=== PATIENT | female | born 1985 | race Caucasian/White ===

== ENCOUNTER 2017-02-24 11:26 | Inpatient (IN) | payer OTHER ==
[2017-02-24] MEDS ORDERED: OXYTOCIN IN NS 500 ML IV ONE (11:35)
[2017-02-24] MEDS ORDERED: IV START KIT ONE (12:04)
[2017-02-24] MEDS ORDERED: MINERAL OIL 25 ML BOT ONE (12:05)
[2017-02-24] MEDS ORDERED: LIDOCAINE Viscous 2% 15 ML UDCUP ONE (12:05)
[2017-02-24] MEDS ORDERED: LACTATED RINGERS 1,000 ML ONE (12:05)
[2017-02-24] MEDS ORDERED: LIDOCAINE 1% (PRES FREE) 30 ML VIAL ONE (12:05)
[2017-02-24] MEDS ORDERED: OXYTOCIN 10 UNITS/ML VIAL ONE (12:05)
[2017-02-24] MEDS ORDERED: PUMP TUBING ONE (12:05)
[2017-02-24] MEDS: MISOPROSTOL 25 MCG TABLET SL SCH ×2 (12:15→16:36)
[2017-02-24 12:43] LABS: HEMATOCRIT 32.6 % (37.0-47.0); MEAN CELL VOLUME 94.8 fl (81.0-99.0); MEAN CORPUSCULAR HGB CONC 33.7 g/dl (33.0-37.0); RED CELL DISTRIBUTION WIDTH 12.4 % (11.5-14.5)
[2017-02-24 12:49] VITALS: BMI 30.8
--- NOTE | 2017-02-24 15:13 | PCMAN ---
OB Admission Note - History : 2 Term: 1 : 0 Abortions (S&E): 0 Livin Gestational Age (weeks): 40 Days (#/7): 6 Admit Cervical Dilation:: 1.5 Admit Cervical Effacement (%):: 40 Admit Station:: -2 Admit Presentaton:: vtx Membrane Status: Ruptured Rupture (Date): 02/24/17 Rupture (Time): 03:00 Contractions: Yes Contraction Frequency:: 1.5-3 Heart Rate:: 135 Status:: reassuring EFW:: 7.5 Summary of Course:: Unremarkable course - Labs Blood Type: A (+) positive Rubella Status: Immune GBS Status: Negative Abnormal Labs: None - Review of Systems 12 point ROS normal except for mild contractions and loss of amniotic fluid since 3 am this morning. - Physical Exam Psych/Mental Status: Mood/Affect Appropriate Lungs: Clear to Auscultation Bilaterally Cardiovascular: Regular Rate and Rhythm Abdomen: Other (gravid, nontender) - Problems (1) Term Status: Acute Code: Z34.80Assessment/Plan: 31 yo @ 40 6/7wks arrives with SROM since 3 am. She states that fluid has become a little darker and so she decided to come in. She only has mild contractions and not very regularly. FHTs are reassuring and she is GBS negative. -will admit -given unfavorable cervix, will place on buccal Miso now in setting SROM and plan to recheck in 4hrs and if remains unfavorable, might consider placing graves bulb at that time (2) SROM (spontaneous rupture of membranes) Status: Acute Code: [id number]/Plan: Clear fluid here on RN shaan.
[2017-02-24] MEDS: LACTATED RINGERS 1,000 ML IV PRN ×2 (20:35→21:53)
[2017-02-24] MEDS ORDERED: EPIDURAL PUMP SET ONE (21:02)
[2017-02-24] MEDS ORDERED: FENTANYL/ROPIVACAINE EPIDURAL 250 ML EP ONE (21:03)
[2017-02-24] MEDS ORDERED: ROPIVACAINE 0.5% 30 ML VIAL ONE (22:11)
[2017-02-24] MEDS ORDERED: EPIDURAL PROCEDURE TRAY ONE (22:11)
[2017-02-24] MEDS ORDERED: OXYTOCIN IN NS 500 ML IV PRN (22:41)
[2017-02-24] MEDS ORDERED: LACTATED RINGERS 1,000 ML IV SCH (22:45)
[2017-02-25] MEDS ORDERED: NALOXONE HCL 0.4 MG/ML VIAL IV PRN (00:08)
[2017-02-25] MEDS ORDERED: ONDANSETRON 4 MG/2ML 2 ML VIAL IV PRN (00:08)
[2017-02-25] MEDS ORDERED: LACTATED RINGERS 500 ML IV PRN (00:08)
[2017-02-25] MEDS ORDERED: NALBUPHINE HCL 20 MG/ML AMP IV PRN (00:08)
[2017-02-25] MEDS ORDERED: DIPHENHYDRAMINE HCL 50 MG/1 ML VIAL IV PRN (00:08)
[2017-02-25] MEDS ORDERED: EPHEDRINE SULFATE 50 MG/ML 1ML VIAL IV PRN (00:08)
[2017-02-25] MEDS ORDERED: METOCLOPRAMIDE HCL 5 MG/ML 2ML VIAL IV PRN (00:08)
[2017-02-25] MEDS ORDERED: LACTATED RINGERS 1,000 ML IV SCH (00:08)
[2017-02-25] MEDS ORDERED: SODIUM CHLORIDE 0.9% 500 ML IV PRN (00:08)
[2017-02-25] MEDS ORDERED: FENTANYL/ROPIVACAINE EPIDURAL 250 ML EP SCH (00:30)
[2017-02-25] MEDS ORDERED: LIDOCAINE 1% (PRES FREE) 30 ML VIAL SUB-Q ONE (02:01)
[2017-02-25] MEDS ORDERED: MAGNESIUM HYDROXIDE 30 ML UDCUP PO PRN (04:14)
[2017-02-25] MEDS ORDERED: BENZOCAINE/MENTHOL 60 APPLIC/BOT TP PRN (04:14)
[2017-02-25] MEDS ORDERED: DOCUSATE SODIUM 100 MG CAPSULE PO PRN (04:14)
[2017-02-25] MEDS ORDERED: LANOLIN 50 APPLIC/7G TUBE TP PRN (04:14)
[2017-02-25] MEDS ORDERED: SENNOSIDES 8.6 MG TABLET PO PRN (04:14)
[2017-02-25] MEDS ORDERED: HYDROCODONE/ACETAMINOPHEN 5/325MG TABLET PO PRN (04:14)
--- NOTE | 2017-02-25 04:32 | PCMDEL ---
Delivery Note - Labor 1st stage (hr/min):: 8hrs 25min 2nd stage (hr/min):: 1hr 27 min 3rd stage (hr/min):: 7 min Total (hr/min):: 9hrs 59 min - Delivery Delivery (Date): 02/25/17 Delivery (Time): 03:42 Infant Gender: Male Presentation: Cephalic Position: OA Umbilical Cord: 3 Vessel Delayed Cord Clamping:: < 1-2 min 1 Minute Total: 8 5 Minute Total: 9 Placenta:: complete w/3 vessel cord EBL:: 150 ml Perineum:: 2nd degree perineal tear Suture:: 3.0 Vicryl Anesthesia/Meds:: Misoprostol 25mg PO x 2, Epidural, Pitocin 30 units for third stage Length ROM:: 24 hrs 42 min Comments:: Vigorous male delivered over 2nd degree perineal tear and was placed on mom's chest. Pitocin 30 units were given for third stage management. Cord was clamped and cut >1-2 min. Placenta delivered complete. The 2nd degree perineal laceration was repaired in the usual fashion with 3.0 Vicryl. EBL was 150 ml.
[2017-02-25] MEDS ORDERED: IV START KIT ONE (04:47)
[2017-02-25] MEDS: IBUPROFEN 800 MG TABLET PO PRN ×3 (08:07→20:45)
[2017-02-26] MEDS: IBUPROFEN 800 MG TABLET PO PRN (01:58)
[2017-02-26 06:47] LABS: HEMATOCRIT 29.2 % (37.0-47.0); HEMOGLOBIN 9.8 gm/l (12.0-16.0)
[2017-02-26 08:31] VITALS: BP 122/78
--- NOTE | 2017-02-26 08:59 | PDOC44 ---
- Subjective Day: 1 Reports Pain Tolerable, Reports , Reports Lochia Light, Reports Tolerating Regular Diet (hand expressing colostrum, has pump at home), Denies Nausea, Denies Vomiting, Denies Fever - Objective Temp Pulse Resp BP Pulse Ox 98.3 F 67 16 122/78 02/26/17 08:26 02/26/17 08:26 02/26/17 08:26 02/26/17 08:26 Lab Results 02/26/17 06:10 Hgb 9.8 L Hct 29.2 L Current Medications Generic Name Dose Route Start Last Admin Trade Name Freq PRN Reason Stop Dose Admin Acetaminophen/Hydrocodone Bitart 1 - 2 tab 02/25/17 04:14 Seale 5/325 PO Q4H PRN Pain (Moderate) Benzocaine/Menthol 1 applic 02/25/17 04:14 02/25/17 06:21 Dermoplast TP 1 bot PRN PRN Administration Patient Comfort Docusate Sodium 100 mg 02/25/17 04:14 Colace PO DAILY PRN Comfort Emollient Ointment 1 applic 02/25/17 04:14 [id number] TP PRN PRN sore nipples Ibuprofen 800 mg 02/25/17 04:14 02/26/17 01:58 Motrin PO 800 mg Q6H PRN Administration Pain (Mild) Magnesium Hydroxide 30 ml 02/25/17 04:14 Milk Of Magnesia PO BEDTIME PRN Constipation Senna 17.2 mg 02/25/17 04:14 Senokot PO BEDTIME PRN Comfort Sodium Chloride 10 ml 02/25/17 04:14 Normal Saline 10ml Flush IV PRN PRN IV Flush Sodium Chloride 10 ml 02/25/17 09:00 Normal Saline 10ml Flush IV Q8HR ERAN - Physical Exam General: Afebrile Psych/Mental Status: Mood/Affect Appropriate, Judgment/Insight Intact, Bonding Well Neurological: Grossly Intact, Alert HEENT: Atraumatic, EOMI Lungs: Clear to Auscultation Bilaterally, Normal Air Movement Cardiovascular: Regular Rate and Rhythm, Normal S1, Normal S2, No Murmur Fundus: Midline, At Umbilicus Extremities: No Edema - Problems:Assessment/Plan (1) (normal spontaneous vaginal delivery) Status: AcuteAssessment/Plan: PPD#1 , doing well Routine pp care support for : pt hand expressing ample colostrum, has pump at home Stable for dc home Disposition: Stable, Anticipate DC to Home
== END 2017-02-26 12:01 | disposition home or self-care (01) | DRG 775 ==
LOC: FBC 11:26 → FBCOUT 11:26 → FBC 11:49
PROVIDERS: ADMIT Family Medicine; ATTEND Family Medicine
PROC: 10E0XZZ Delivery of Products of Conception, External Approach (ICD-10-PCS; principal; 2017-02-25)
PROC: 0KQM0ZZ Repair Perineum Muscle, Open Approach (ICD-10-PCS; 2017-02-25)
DX: O70.1 Second degree perineal laceration during delivery (principal); Z37.0 Single live birth; Z3A.40 40 weeks gestation of pregnancy